=== PATIENT | male | born 1960 | race Caucasian/White ===

== ENCOUNTER 2017-12-04 10:26 | Observation (INO) | payer BC ==
[2017-12-04] MEDS ORDERED: Nitroglycerin TAB 0.4 MG* 0.4 MG TAB SL ONE (10:53)
[2017-12-04] MEDS ORDERED: NS 0.9% 1000 ML* 1,000 ML IV ONE (10:53)
[2017-12-04 11:32] LABS: ABS Basophils 0.1 10^3/ul (0-0.2); ABS Eosinophils 0 10^3/ul (0-0.6); ABS Lymphocytes 0.9 10^3/ul (1.0-4.8); ABS Monocytes 0.8 10^3/ul (0-0.8); ABS Neutrophils 9.1 10^3/ul (1.5-7.7); ABS Nucleated RBC 0 10^3/ul; Eosinophil % 0.2 % (0-6); Hematocrit 45 % (42-52); Hemoglobin 15.7 g/dl (14.0-18.0); Lymphocyte % 8.6 % (25-47); Mean Corpuscular HGB Conc 35 g/dl (31-36); Mean Corpuscular Hemoglobin 33 pg (27-31); Mean Corpuscular Volume 94 fL (80-94); Mean Platelet Volume 7.3 um3 (7.4-10.4); Nucleated Red Blood Cells % 0; Platelet Count 296 10^3/ul (150-450); Red Blood Count 4.77 10^6/ul (4.0-5.4); Red Cell Distribution Width 12 % (10.5-15); White Blood Count 10.9 10^3/ul (3.5-10.8)
--- NOTE | 2017-12-04 11:39 | RAD ---
Indication: Chest pain, shortness of breath. Comparison: June 16, 2015 Technique: Upright AP 1112 hours Report: Suboptimal inspiration. Clear lungs and pleural spaces. Negative for pneumothorax. The heart, pulmonary vasculature, and mediastinal contours are unremarkable. IMPRESSION: Negative for cardiomegaly or pulmonary edema. Low lung volumes.
[2017-12-04 11:41] LABS: INR 0.97 (0.77-1.02)
[2017-12-04 11:54] LABS: EGFR Non-African American 71.5 (>60)
[2017-12-04] MEDS ORDERED: Magnesium Sulfate 2 GM IV* 2 GM/50 ML BAG IVPB ONE (11:57)
[2017-12-04] MEDS ORDERED: Iohexol 300* (CONTRAST) 10 ML SDV IV ONE (12:23)
--- NOTE | 2017-12-04 13:01 | RAD ---
Indication: Lower and upper abdominal pain. Contrast: Administered 127.1 ml of OMNIPAQUE 300 mg/ml CT of the abdomen and pelvis was performed after oral and IV contrast administration. Coronal and sagittal reconstructed images were obtained. Lung bases demonstrate no pleural fluid, nodules or masses. Heart is of normal size without evidence of pericardial effusion. Liver is normal in size. No focal lesions or intrahepatic ductal dilatation is noted. The spleen is normal in size. The pancreas demonstrates no mass or pancreatic duct dilatation. Common duct is not dilated. The gallbladder demonstrates high density material in the dependent portion consistent with cholelithiasis. No pericholecystic fluid is identified. No wall thickening is identified. No adrenal masses are noted. The kidneys demonstrate symmetric nephrograms without hydronephrosis. No retroperitoneal lymphadenopathy is noted. No dilated loops of bowel are noted. The urinary bladder is unremarkable. The appendix is visualized and is normal. No hernias are noted. The pelvis demonstrates no retroperitoneal or pelvic lymphadenopathy. Small bowel demonstrates no abnormal dilatation. There is contrast in the colon. Prostate is normal in size. Urinary bladder is unremarkable. IMPRESSION: Hepatic steatosis. Cholelithiasis without biliary duct dilatation. Normal appendix. Diverticulosis without definite evidence of diverticulitis.
[2017-12-04] MEDS ORDERED: Ondansetron INJ* 2 MG/ML VIAL IV PRN (13:05)
[2017-12-04] MEDS ORDERED: Thiamine IV 100 MG, Folic Acid IV* 1 MG, Multiple Vitamin IV ADULT* 10 ML in D5NS 0.9% ... IV ONE (13:05)
[2017-12-04] MEDS ORDERED: Acetaminophen TAB* 325 MG PO PRN ×2 (13:05)
[2017-12-04] MEDS ORDERED: NS 0.9% 1000 ML* 1,000 ML IV SCH (13:15)
[2017-12-04] MEDS ORDERED: Potassium Chlor TAB* 20 MEQ TAB.ER PO ONE (13:19)
[2017-12-04 13:27] LABS: Urine Appearance Clear; Urine Blood Negative (Negative); Urine Color Yellow; Urine Ketones Negative (Negative); Urine Protein Negative (Negative); Urine Specific Gravity 1.009 (1.010-1.030); Urine Urobilinogen Negative (Negative)
[2017-12-04] MEDS ORDERED: LORazepam TAB(*) 1 MG PO SCH (14:00)
--- NOTE | 2017-12-04 14:54 | ED ---
Daniel Diaz Jennifer, scribed for Christian Lerma MD on 12/04/17 at 1053 . Complex/Multi-Sys Presentation - HPI Summary HPI Summary: The patient is a 57 year old male who complains of chest pressure, heart racing , shortness of breath, and anxiety that began this morning at 07:30. He denies that the chest pressure radiates to anywhere else in his body. Movement, standing, and walking aggravates the shortness of breath. The patient additionally complains of nausea, coughing, and abdominal pressure. He adds that he had an appointment with Dr. Angeles due to GI problems for the past week. The patient denies swelling of the ankles, feeling sweaty, and abdominal pain in the ED today. - History Of Current Complaint Chief Complaint: EDChestPainROMI Time Seen by Provider: 12/04/17 10:43 Hx Obtained From: Patient Onset/Duration: Sudden Onset, Lasting Hours - about 3 hours, Still Present Timing: Constant Severity Currently: Mild Severity Initially: Mild Location: Pain At: - Chest pressure Aggravating Factor(s): Movement, standing, walking increases shortness of breath Associated Signs And Symptoms: Positive: Other - chest pressure, heart racing, shortness of breath, anxiety, nausea, coughing, abdominal pressure. NEGATIVE: swelling of the ankles, feeling sweaty, abdominal pain - Allergies/Home Medications Allergies/Adverse Reactions: Allergies Allergy/AdvReac Type Severity Reaction Status Date / Time No Known Allergies Allergy Verified 08/12/17 08:59 Home Medications: Home Medications Chlorthalidone TAB* [Hygroton TAB*] 25 mg PO DAILY 12/04/17 [History Confirmed 12/04/17] Enalapril TAB* [Vasotec TAB*] 40 mg PO DAILY 12/04/17 [History Confirmed ] Escitalopram (NF) [Lexapro 10 mg (NF)] 10 mg PO DAILY 12/04/17 [History Confirmed 12/04/17] Hyoscyamine ER (NF) [Levbid (NF)] 0.375 mg PO BID 12/04/17 [History Confirmed ] Omeprazole CAP* [Prilosec CAP* 20 MG] 40 mg PO DAILY 12/04/17 [History Confirmed 12/04/17] amLODIPine TAB* [Norvasc 5 mg TAB*] 10 mg PO DAILY 12/04/17 [History Confirmed 12/04/17] PMH/Surg Hx/FS Hx/Imm Hx Endocrine/Hematology History: Denies: Hx Diabetes Cardiovascular History: Reports: Hx Hypertension Denies: Hx Pacemaker/ICD History: Denies: Hx Renal Disease Sensory History: Denies: Hx Hearing Aid Psychiatric History: Denies: Hx Panic Disorder - Surgical History Surgery Procedure, Year, and Place: Rt ANKLE - W/ SCREWS - THEY ARE REMOVED, RIGHT KNEE MENISCUS REPAIR Infectious Disease History: No Infectious Disease History: Denies: Traveled Outside the [place] in Last 30 Days - Family History Known Family History: Positive: Hypertension - Mother, Father - Social History Alcohol Use: None Substance Use Type: Reports: None Smoking Status (MU): Former Smoker Review of Systems Negative: Skin Diaphoresis Positive: Palpitations, Chest Pain - Pressure Positive: Shortness Of Breath, Cough Positive: Abdominal Pain - Abdominal pressure, Nausea Negative: Edema All Other Systems Reviewed And Are Negative: Yes Physical Exam - Summary Physical Exam Summary: General: well-appearing, no pain distress Skin: warm, color reflects adequate perfusion, dry Head: normal Eyes: EOMI, RANDALL ENT: normal Neck: supple, nontender Respiratory: CTA, breath sounds present Cardiovascular: RRR Abdomen: soft, nontender Bowel: present Musculoskeletal: normal, strength/ROM intact Neurological: normal, sensory/motor intact, A&O x3 Psychological: affect/mood appropriate Triage Information Reviewed: Yes Vital Signs On Initial Exam: Initial Vitals Temp Pulse Resp BP Pulse Ox 98.1 F 83 19 157/87 97 12/04/17 10:32 12/04/17 10:32 12/04/17 10:32 12/04/17 10:32 12/04/17 10:32 Vital Signs Reviewed: Yes Diagnostics - Vital Signs Vital Signs Temp Pulse Resp BP Pulse Ox 12/04/17 10:34 84 94 12/04/17 10:32 98.1 F 83 19 157/87 97 - Laboratory Lab Results: Lab Results 12/04/17 12/04/17 12/04/17 Range/Units 11:21 11:21 11:21 WBC 10.9 H (3.5-10.8) 10^3/ul RBC 4.77 (4.0-5.4) 10^6/ul Hgb 15.7 (14.0-18.0) g/dl Hct 45 (42-52) % MCV 94 (80-94) fL MCH 33 H (27-31) pg MCHC 35 (31-36) g/dl RDW 12 (10.5-15) % Plt Count 296 (150-450) 10^3/ul MPV 7.3 L (7.4-10.4) um3 Neut % (Auto) 83.6 H (38-83) % Lymph % (Auto) 8.6 L (25-47) % [place] % (Auto) 7.1 H (0-7) % Eos % (Auto) 0.2 (0-6) % Baso % (Auto) 0.5 (0-2) % Absolute Neuts (auto) 9.1 H (1.5-7.7) 10^3/ul Absolute Lymphs (auto) 0.9 L (1.0-4.8) 10^3/ul Absolute Monos (auto) 0.8 (0-0.8) 10^3/ul Absolute Eos (auto) 0 (0-0.6) 10^3/ul Absolute Basos (auto) 0.1 (0-0.2) 10^3/ul Absolute Nucleated RBC 0 10^3/ul Nucleated RBC % 0 INR (Anticoag Therapy) 0.97 (0.77-1.02) APTT 35.6 (26.0-36.3) seconds D-Dimer, Quantitative < 200 (Less Than 230) ng/mL Sodium (133-145) mmol/L Potassium (3.5-5.0) mmol/L Chloride (101-111) mmol/L Carbon Dioxide (22-32) mmol/L Anion Gap (2-11) mmol/L BUN (6-24) mg/dL Creatinine (0.67-1.17) mg/dL Est GFR ( Amer) (>60) Est GFR (Non-Af Amer) (>60) BUN/Creatinine Ratio (8-20) Glucose (70-100) mg/dL Lactic Acid (0.5-2.0) mmol/L Calcium (8.6-10.3) mg/dL Magnesium (1.9-2.7) mg/dL Total Bilirubin (0.2-1.0) mg/dL AST (13-39) U/L ALT (7-52) U/L Alkaline Phosphatase (34-104) U/L Total Creatine Kinase (10-223) U/L CK-MB (CK-2) (0.6-6.3) ng/mL Troponin I (<0.04) ng/mL C-Reactive Protein (< 5.00) mg/L B-Natriuretic Peptide 33 ( - 100) pg/mL Total Protein (6.4-8.9) g/dL Albumin (3.2-5.2) g/dL Globulin (2-4) g/dL Albumin/Globulin Ratio (1-3) Lipase (11.0-82.0) U/L TSH (0.34-5.60) mcIU/mL Cortisol mcg/dL Urine Color Urine Appearance Urine pH (5-9) Ur Specific [place] (1.010-1.030) Urine Protein (Negative) Urine Ketones (Negative) Urine Blood (Negative) Urine Nitrate (Negative) Urine Bilirubin (Negative) Urine Urobilinogen (Negative) Ur Leukocyte Esterase (Negative) Urine Glucose (Negative) 12/04/17 12/04/17 12/04/17 Range/Units 11:21 11:21 12:25 WBC (3.5-10.8) 10^3/ul RBC (4.0-5.4) 10^6/ul Hgb (14.0-18.0) g/dl Hct (42-52) % MCV (80-94) fL MCH (27-31) pg MCHC (31-36) g/dl RDW (10.5-15) % Plt Count (150-450) 10^3/ul MPV (7.4-10.4) um3 Neut % (Auto) (38-83) % Lymph % (Auto) (25-47) % [place] % (Auto) (0-7) % Eos % (Auto) (0-6) % Baso % (Auto) (0-2) % Absolute Neuts (auto) (1.5-7.7) 10^3/ul Absolute Lymphs (auto) (1.0-4.8) 10^3/ul Absolute Monos (auto) (0-0.8) 10^3/ul Absolute Eos (auto) (0-0.6) 10^3/ul Absolute Basos (auto) (0-0.2) 10^3/ul Absolute Nucleated RBC 10^3/ul Nucleated RBC % INR (Anticoag Therapy) (0.77-1.02) APTT (26.0-36.3) seconds D-Dimer, Quantitative (Less Than 230) ng/mL Sodium 129 L (133-145) mmol/L Potassium 3.2 L (3.5-5.0) mmol/L Chloride 94 L (101-111) mmol/L Carbon Dioxide 26 (22-32) mmol/L Anion Gap 9 (2-11) mmol/L BUN 22 (6-24) mg/dL Creatinine 1.07 (0.67-1.17) mg/dL Est GFR ( Amer) 91.9 (>60) Est GFR (Non-Af Amer) 71.5 (>60) BUN/Creatinine Ratio 20.6 H (8-20) Glucose 106 H (70-100) mg/dL Lactic Acid 1.2 (0.5-2.0) mmol/L Calcium 9.0 (8.6-10.3) mg/dL Magnesium 1.7 L (1.9-2.7) mg/dL Total Bilirubin 0.90 (0.2-1.0) mg/dL AST 159 H (13-39) U/L ALT 96 H (7-52) U/L Alkaline Phosphatase 81 (34-104) U/L Total Creatine Kinase 70 (10-223) U/L CK-MB (CK-2) 2.3 (0.6-6.3) ng/mL Troponin I 0.00 (<0.04) ng/mL C-Reactive Protein 9.80 H (< 5.00) mg/L B-Natriuretic Peptide ( - 100) pg/mL Total Protein 7.0 (6.4-8.9) g/dL Albumin 3.8 (3.2-5.2) g/dL Globulin 3.2 (2-4) g/dL Albumin/Globulin Ratio 1.2 (1-3) Lipase 41 (11.0-82.0) U/L TSH 1.10 (0.34-5.60) mcIU/mL Cortisol 17.04 mcg/dL Urine Color Yellow Urine Appearance Clear Urine pH 6.0 (5-9) Ur Specific [place] 1.009 L (1.010-1.030) Urine Protein Negative (Negative) Urine Ketones Negative (Negative) Urine Blood Negative (Negative) Urine Nitrate Negative (Negative) Urine Bilirubin Negative (Negative) Urine Urobilinogen Negative (Negative) Ur Leukocyte Esterase Negative (Negative) Urine Glucose Negative (Negative) Result Diagrams: 12/04/17 11:21 12/04/17 11:21 Lab Statement: Any lab studies that have been ordered have been reviewed, and results considered in the medical decision making process. - Radiology CXR Xray Interpretation: No Acute Changes - Negative for cardiomegaly or pulmonary edema. Low lung volumes. Dr. Lerma has reviewed this report. Radiology Interpretation Completed By: Radiologist - CT CT Abd/Pel CT Interpretation: No Acute Changes - Hepatic steatosis. Cholelithiasis without biliary duct dilatation. Normal appendix. Diverticulosis without definite evidence of diverticulitis. Dr. Lerma has reviewed this report. CT Interpretation Completed By: Radiologist - EKG 10:34 Cardiac Rate: NL EKG Rhythm: Sinus Rhythm - [address] Segment: Normal Ectopy: PVCs Complex Multi-Symp Course/Dx Course Of Treatment: Medications reviewed. BP noted and advised to follow up with PCP. ADMIT HOSPITALIST STABLE. - Diagnoses Provider Diagnoses: HTN (hypertension), Chest pain, Abdominal pain - Physician Notifications Discussed Care Of Patient With: Rose Simpson Time Discussed With Above Provider: 12:15 Instructed by Provider To: Admit As Inpatient Discharge - Sign-Out/Discharge Documenting (check all that apply): Discharge - ADMIT HOSPITALIST STABLE - Discharge Plan Condition: Stable Disposition: ADMITTED TO [facility] - Billing Disposition and Condition Condition: STABLE [place] [place] The documentation as recorded by the Daniel peace Jennifer accurately reflects the service I personally performed and the decisions made by , Christian Lerma MD.
[2017-12-04] MEDS: Hyoscyamine TAB* 0.125 MG PO SCH (17:02)
--- NOTE | 2017-12-04 19:47 | HP ---
CC: Dr. Carcamo * HISTORY AND PHYSICAL: DATE OF ADMISSION: 12/04/17 PRIMARY CARE PROVIDER: Dr. Carcamo. ATTENDING PHYSICIAN WHILE IN THE HOSPITAL: Dr. Rose Simpson * (report dictated by Cruz Guzman NP). CHIEF COMPLAINT: 1. Lightheadedness. 2. Dizziness. 3. Shortness of breath. 4. Chest pressure. HISTORY OF PRESENT ILLNESS: Mr. Mancuso is a 57-year-old male patient, he carries a history of hypertension, borderline hyperlipidemia, he also has a history of DENNIS, history of IBS, depression. He comes in to our ER today stating that last , he noticed he was having lower abdominal cramping, he was feeling constipated. He has really not had a good appetite last couple of days. Of note, he is going through a divorce actively. In addition to this , also has a high stress job. He says that he took a laxative on Friday, which did help him, but he has been having this intermittent lower abdominal cramping that he has had for some time and he has had a recent colonoscopy to work this up. He also told today the reason he came into the ED was because he had an episode where he was going to the shower, he felt very lightheaded, felt like he was going to faint, felt dizzy, started having some pressure in the left side of his chest. He felt palpitations, he felt short of breath, he was getting sweaty, he was concerned and came in to the emergency department. He said the pain did go away when he received a nitro here in the emergency department. He says an aspirin was given by EMS on his way into the hospital. He says that the discomfort in his chest is now gone, but there was concern due to his history and we were asked to evaluate for admission. He denied having any fevers. He says he did not pass out. He denies any recent trips or travel. He says he has been drinking heavily about a half a bottle to three- fourths of a bottle a day of hard liquor for quite some time. He says he did not tell me specifically how long he had been drinking this heavy for. He denied having any vomiting. He says he has been having some dry heaves. He says the abdominal pain again has been intermittent. He has had decreased appetite and he has been following with GI for working this up. PAST MEDICAL HISTORY: Significant for: 1. Hypertension. 2. DENNIS. 3. Hyperlipidemia. 4. IBS. 5. Depression. PAST SURGICAL HISTORY: He has had a right total knee replacement. MEDICATIONS: His home medications include: 1. Norvasc 10 mg p.o. daily. 2. Lexapro 10 mg daily. 3. Vasotec 40 mg daily. 4. Chlorthalidone 25 mg p.o. daily. 5. Prilosec 40 mg daily. 6. Hyoscyamine 0.375 mg p.o. b.i.d. ALLERGIES TO MEDICATIONS: No known drug allergies. FAMILY HISTORY: His mother had a history of NE. Father had bladder cancer. 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 He is a former smoker. He smoked for about 10 to 15 years; he quit in 1999. He does drink on a daily basis. Denies any other recreational drug abuse. He does not have a surrogate decision maker at this point. REVIEW OF SYSTEMS: There is no documented fever. He denied having any significant weight change. There was no double vision. He denies having any ear discharge. He denies having any rhinorrhea. There is no sore throat. No thyroid enlargement. There was chest pressure from my HPI. There is abdominal pain from my HPI. Denied any shortness of breath now. He did admit to having shortness of breath with the episode, but no orthopnea, no nocturnal dyspnea. Does admit to dry heaves with nausea, but no vomiting. No dysuria, no frequency. No seizure, there was no loss of consciousness. No pruritus, no skin ulceration. Review of 14 systems completed, all others negative. PHYSICAL EXAMINATION GENERAL: At this time, Mr. Mancuso is a 57-year-old male patient. He is sitting in the ED stretcher. He does not appear to be in any acute distress. VITAL SIGNS: Blood pressure 157/92, pulse 90, respirations were 20, his O2 sat was 96%, temperature 98.1. HEENT: Head: Atraumatic, normocephalic. Eyes: EOMs are intact. Sclerae anicteric and not pale. Throat: Oral mucosa appears to be moist. No oropharyngeal erythema. NECK: Supple. LUNGS: Clear to auscultation bilaterally. No wheezes, rales, or rhonchi. HEART: Sounds S1, S2. Regular rate and rhythm. No murmurs, rubs, or gallops. ABDOMEN: Soft. It was flat, nontender. Bowel sounds present. EXTREMITIES: Pulses were 2+ throughout. He had no peripheral edema. He is moving all 4 extremities with 5/5 strength. NEUROLOGIC: The patient is awake, he is alert, he is oriented x3. His tongue is midline. His mechanical laboratory technician were equal. No gross focal deficits. SKIN: Intact. DIAGNOSTIC STUDIES/LAB DATA: WBC of 10.9, RBC of 4.77, hemoglobin 15.7, hematocrit of 45, platelet count of 296. INR of 0.97, PTT of 35.6, his D-dimer was less than 200. His sodium was 129, potassium was 3.2, chloride 94, his bicarb was 26, BUN 22, creatinine 1.07, glucose 106, lactate 1.2, calcium 9, mag was 1.7. Total bili 0.7, AST 159, ALT 96, alk phos 81. CK 70, CK-MB 2.3. Troponin 0. CRP at 9.8. BNP at 33. Albumin 3.8. Lipase normal. TSH was normal. He had an abdominal pelvis CT scan today. Impression: Hepatitic steatosis, cholelithiasis without biliary duct dilatation, normal appendix, diverticulosis without evidence of diverticulitis. There was a chest x-ray obtained today, which showed negative for cardiomegaly, pulmonary edema, or lung volume. There was an EKG obtained today, which shows normal sinus rhythm. His P waves were inverted. He did have a PVC, but he had no ST elevations or T-wave inversions. He did have PVC and PACs noted. Reviewing the previous EKG, the P- wave inversions are new. He had no T-wave inversions. He had again no gross changes at this point with exception of the P waves. Old medical records were reviewed. ASSESSMENT AND PLAN: Mr. Mancuso is a 57-year-old male patient coming into the emergency department today with multiple complaints of abdominal pain, in addition to his chest pain, feeling like he was going to faint, feeling palpitations. We were asked to evaluate for admission. He will be admitted under observation status for: 1. Chest discomfort and presyncope. At this point, he does have risk factor for coronary artery disease. I think we should cycle his troponins, get lipid panel, A1c in the morning, start him on baby aspirin, continue his meds as prescribed. He is chest pain free now. We will get a stress test. I ordered a chemical stress test as the patient has been having issues with his right knee replacement. He says that it has been clicking and at times it is painful , and he was told that he should not be running on this, so I had ordered a chemical stress test for the patient due to this reason. We will repeat his EKG , get the troponins, place him on telemetry, and follow. 2. Presyncope. Again, I will check orthostatic blood pressures as he not been eating well. In addition to this, we will get the stress test. Place the patient on telemetry, and we will continue to follow. 3. Abdominal pain, etiology is unclear. His working diagnosis is irritable bowel syndrome, he is following with [facility]. He had a colonoscopy in July, which appeared to be normal. He had a CT scan today, which showed cholelithiasis, but he is not complaining of tenderness in the right upper quadrant and there are no signs of cholecystitis on CT imaging and he is nontender, so at this point, I think what we will do is reevaluate tomorrow. He does not appear to be obstructed on initial lab. His bili is okay. His alk phos is okay. We will repeat his LFTs in the morning. We will continue to follow this. Certainly, it could be related to the alcohol use that could be causing this. We will continue the hyoscyamine and we will continue to monitor. He is not having any pain now and he is soft, flat, and nontender. 4. Hyponatremia. This is probably secondary to the chlorthalidone and decreased intake. We will go ahead and give him normal saline at 100 and repeat this in the morning. I am sending off cortisol, TSH, urine osmo and serum osmo. 5. Hypokalemia. This has been replaced here in the ED. 6. Hypomagnesemia. We are going to replace this as well with IV mag. 7. Ethanol abuse. I did put him on the [facility] protocol. His LFTs are mildly bumped, is probably secondary to the hepatic steatosis. We will repeat the LFTs in the morning and monitor. 8. Hypertension. Continue meds as prescribed. 9. Obstructive sleep apnea. Continue with CPAP. 10. Hyperlipidemia. Checking lipid panel to follow. 11. Question of irritable bowel syndrome. Continue with his medications. 12. Depression. Continue supportive care. 13. DVT prophylaxis. I have ordered SCDs. 14. Code status: Full code. 15. Fluids, electrolytes, and nutrition. He can have a heart-healthy diet and is n.p.o. after midnight. TIME SPENT: On the admission was approximately 60 minutes, greater than half the time spent [id number] with the patient obtaining my history and physical, other half of the time spent going over the plan of care with the patient and implementing the plan of care. I did discuss the plan of care with my attending, Dr. Simpson; she is in agreement. CRUZ GUZMAN, MIKE [id number]/CPS #: [id number] CIARA
[2017-12-05 05:12] LABS: ABS Basophils 0 10^3/ul (0-0.2); ABS Eosinophils 0.2 10^3/ul (0-0.6); ABS Lymphocytes 1.7 10^3/ul (1.0-4.8); ABS Monocytes 0.7 10^3/ul (0-0.8); ABS Neutrophils 5.3 10^3/ul (1.5-7.7); ABS Nucleated RBC 0 10^3/ul; Eosinophil % 2.2 % (0-6); Hematocrit 41 % (42-52); Hemoglobin 14.2 g/dl (14.0-18.0); Mean Corpuscular HGB Conc 35 g/dl (31-36); Mean Corpuscular Hemoglobin 33 pg (27-31); Mean Corpuscular Volume 94 fL (80-94); Mean Platelet Volume 7.6 um3 (7.4-10.4); Nucleated Red Blood Cells % 0.1; Platelet Count 260 10^3/ul (150-450); Red Blood Count 4.31 10^6/ul (4.0-5.4); Red Cell Distribution Width 13 % (10.5-15); White Blood Count 7.9 10^3/ul (3.5-10.8)
[2017-12-05 05:16] LABS: INR 0.95 (0.77-1.02)
[2017-12-05 05:22] LABS: EGFR Non-African American 101.5 (>60)
[2017-12-05] MEDS: Hyoscyamine TAB* 0.125 MG PO SCH ×2 (08:44→13:05)
[2017-12-05] MEDS ORDERED: Omeprazole CAP* 20 MG PO SCH (09:00)
[2017-12-05] MEDS ORDERED: Enalapril TAB* 20 MG PO SCH (09:00)
[2017-12-05] MEDS ORDERED: amLODIPine TAB* 5 MG PO SCH (09:00)
[2017-12-05] MEDS ORDERED: Multivitamins/Minerals TAB PO SCH (09:00)
[2017-12-05] MEDS ORDERED: Citalopram TAB* 20 MG PO SCH (09:00)
[2017-12-05] MEDS ORDERED: Thiamine TAB* 100 MG TAB PO SCH (09:00)
[2017-12-05] MEDS ORDERED: Aspirin Low Dose CHEW TAB* 81 MG PO SCH (09:00)
[2017-12-05] MEDS ORDERED: Folic Acid TAB* 1 MG PO SCH (09:00)
--- NOTE | 2017-12-05 13:22 | RAD ---
Edited for charges. INDICATION: Chest pain, shortness of breath, hypertension, obesity. COMPARISON: No relevant prior exams available on the [facility] PACS for comparison. TECHNIQUE: 10.700 mCi of Tc-99m Myoview were administered IV. SPECT images of the heart were obtained. Later on the same day. Under the direction of Dr. Todd, the patient was given an IV injection of a pharmacologic stress agent. Subsequently, the patient was given an IV injection of 25.200 mCi Tc-99m Myoview. SPECT images of the heart were obtained and a gated wall motion study was performed. FINDINGS: Gated wall motion images were obtained at stress and demonstrate wall motion to be within normal limits. The calculated left ventricular ejection fraction is 70 % at stress. Estimated LEFT ventricular end diastolic volume is 85 mL. TID 1.03. Based on review of the attenuation corrected and non corrected images the distribution of radiopharmaceutical within the myocardium on the stress and rest images is within normal limits. No fixed or reversible regions of hypoperfusion evident. IMPRESSION: 1. No evidence for stress induced myocardial ischemia or presence of an infarct. 2. Normal left ventricular wall motion and ejection fraction. ASSESSMENT: Low risk based on nuclear portion Based on imaging criteria from ACC/AHA 2002 Guideline Update for the Management of Patients With Chronic Stable Angina Table 23. Noninvasive Risk Stratification. MTDD
[2017-12-05 14:05] VITALS: BP 145/85
--- NOTE | 2017-12-06 03:07 | DS ---
DISCHARGE SUMMARY: DATE OF ADMISSION: 12/04/17 DATE OF DISCHARGE: 12/05/17 ADMITTING PROVIDER: Cruz Guzman NP PRIMARY CARE PHYSICIAN: Dr. Carcamo. ATTENDING PHYSICIAN: Kushal Gaona MD CHIEF COMPLAINT: Lightheadedness, dizziness, shortness of breath, chest pressure, anxiety. PRINCIPAL DIAGNOSIS: Anxiety; acute coronary syndrome, ruled out. HISTORY OF PRESENT ILLNESS: Syed Mancuso is a 57-year-old male with past medical history of hypertension, hyperlipidemia, obstructive sleep apnea, irritable bowel syndrome, anxiety, depression, been going through lot of stress in his work and home life recently including divorce and having to sell his house, alcohol abuse (progressive and recently accelerating; currently attested to 1/2 to 3/4 bottle of hard liqour daily). He presents to the ER a week prior to admission with low abdominal cramping, was constipated, took the laxatives 3 days prior to admission with some improvement. On the day of admission, he had episode in the shower where he felt very lightheaded, felt like he was going to faint, was very dizzy and had some pressure on the left side of his chest. He felt palpitations. He was getting short of breath and sweaty. He presented to the emergency room and received nitroglycerin with some relief. He reports the chest pressure was 1 or 2/10 at its worst. He had aspirin with EMS. Of note, on further history, his last drink had been 3 days prior to admission on Friday , 12/01/17. He was admitted for ACS rule out. He had negative troponin x3 and low risk negative nuclear stress test without any evidence of ischemia or infarction and normal left ventricular wall motion and ejection fraction. He attests that he thinks he was having a panic attack. Also likely that he was having to be of alcohol withdrawal. He was placed on WAM precautions throughout the admission and did not require any Ativan. He reports that he had been sober for many years stopping 15 years ago when he had previously abused alcohol. He was visited by social work and case management about alcohol abuse programs. He attested he has a good support system, which he plans to follow up with and did not want any specific referral. He is being discharged on thiamine, folate, folic acid, multivitamin. He was also noted to be hyponatremic to 129 on admission, improved to 131. His chlorthalidone was held during admission. It is being recommended to be stopped. He was started on metoprolol succinate 25 mg p.o. daily in its place. He should record his blood pressures daily. He was also started on aspirin 81 mg daily. DISCHARGE MEDICATIONS: Include: 1. Amlodipine 10 mg p.o. daily. 2. Enalapril 40 mg p.o. daily. 3. Lexapro 10 mg p.o. daily. 4. Hyoscyamine 0.375 mg p.o. b.i.d. 5. Omeprazole 40 mg p.o. daily. 6. Aspirin 81 mg p.o. daily (new). 7. Folic acid 1 mg p.o. daily (new). 8. Metoprolol succinate 25 mg p.o. daily (new). 9. Multivitamin 1 tab p.o. daily (new). 10. Thiamine 100 mg p.o. daily (new). DISCHARGE DIET: Heart healthy. ACTIVITY LEVEL: No restrictions. FOLLOWUP: He is to follow up with Dr. Carcamo within 5 days of discharge. The patient also missed appointment previous scheduled with Dr. Lenz for his IBS and should be rescheduled. He should take a log book with his blood pressure readings to Dr. Carcamo. He needs to drastically moderate if not eliminate alcohol and plans to pursue the same resources he has used in the past to obtain this goal. TIME SPENT ON DISCHARGE: 35 minutes. [id number]/CPS #: [id number] MTDD
== END 2017-12-05 16:10 | disposition home or self-care (01) ==
LOC: ED 10:26 → MEDTELE 13:03
PROVIDERS: ADMIT Internal Medicine; ATTEND Internal Medicine
DX: R42 Dizziness and giddiness (principal); F41.9 Anxiety disorder, unspecified; Z79.899 Other long term (current) drug therapy; G47.33 Obstructive sleep apnea (adult) (pediatric); E78.5 Hyperlipidemia, unspecified; K58.9 Irritable bowel syndrome, unspecified; F32.9 Major depressive disorder, single episode, unspecified; Z87.891 Personal history of nicotine dependence; R10.9 Unspecified abdominal pain; R94.31 Abnormal electrocardiogram [ECG] [EKG]; R06.02 Shortness of breath
CPT/HCPCS: 36415; 71045; 74177; 78452; 80048; 80053; 80061; 80076; 81003; 82533; 82550; 82553; 83036; 83605; 83690; 83735; 83880; 83930; 83935; 84300; 84443; 84484; 85025; 85379; 85610; 85730; 86140; 93005; 93017; 94660; 96365; 96366; 96367; 99284; A9270-GY; A9502; G0378; J3411; J3475; Q9967

== ENCOUNTER 2018-01-23 13:16 | Emergency (ER) | payer BC ==
[2018-01-23] MEDS ORDERED: NS 0.9% 1000 ML* 1,000 ML IV ONE (13:50)
[2018-01-23] MEDS ORDERED: Thiamine TAB* 100 MG TAB PO ONE (13:51)
[2018-01-23] MEDS ORDERED: Thiamine IV* 100 MG/ML 2 ML VIAL IV ONE (13:51)
[2018-01-23] MEDS ORDERED: Thiamine IV* 100 MG, Folic Acid IV* 1 MG, Multiple Vitamin IV ADULT* 10 ML in NS 0.9% 1... IV ONE (13:51)
[2018-01-23 14:21] LABS: ABS Basophils 0 10^3/ul (0-0.2); ABS Eosinophils 0.2 10^3/ul (0-0.6); ABS Lymphocytes 1.5 10^3/ul (1.0-4.8); ABS Monocytes 0.5 10^3/ul (0-0.8); ABS Neutrophils 5.1 10^3/ul (1.5-7.7); ABS Nucleated RBC 0 10^3/ul; Eosinophil % 3.3 % (0-6); Hematocrit 46 % (42-52); Hemoglobin 16.1 g/dl (14.0-18.0); Lymphocyte % 20.1 % (25-47); Mean Corpuscular HGB Conc 35 g/dl (31-36); Mean Corpuscular Hemoglobin 32 pg (27-31); Mean Corpuscular Volume 92 fL (80-94); Mean Platelet Volume 7.3 um3 (7.4-10.4); Nucleated Red Blood Cells % 0.1; Platelet Count 306 10^3/ul (150-450); Red Blood Count 4.96 10^6/ul (4.0-5.4); Red Cell Distribution Width 12 % (10.5-15); White Blood Count 7.4 10^3/ul (3.5-10.8)
[2018-01-23 14:36] LABS: EGFR Non-African American 95.8 (>60)
[2018-01-23] MEDS ORDERED: Thiamine IV* 100 MG/ML 2 ML VIAL ONE (15:49)
--- NOTE | 2018-01-23 18:52 | ED ---
Norman Diaz Angela, scribed for Norman Stark MD on 01/23/18 at 1352 . Substance Abuse/Use - HPI Summary HPI Summary: This pt is a 57 y/o male, accompanied by friend, presenting to [facility] via EMS for alcohol intoxication. Per friend, somebody saw the pt had passed out on his mower and called EMS and the police. Pt does not remember any of this and only remembers mowing his lawn at his house. He denies falling from mower. After EMS and the police arrived he states he asked them if he could just go back home. He states drinking "not much" and likes to drink "anything." Pt denies diaphoresis, fever, chills, chest pain, SOB, abd pain. Per [place] police officer, a third green party called in as they saw the pt passed out with vomit on his shirt on his driveway. On arrival per [place] police officer, pt was conscious but somewhat uncooperative. job placement officer believes the pt has hx of alcohol abuse. PMHx includes HTN. Pt is currently on amlodipine and enalapril. - History Of Current Complaint Stated Complaint: ETOH Time Seen by Provider: 01/23/18 13:20 Hx Obtained From: Patient, Other: - Friend, police Ingestion History: Type/Name Of Drug - Alcohol, Amount Ingested - unknown Overdose Characteristics: Oral Timing Of Abuse: Binge Use Severity Currently: Moderate Aggravating Factor(s): Nothing Alleviating Factor(s): Nothing Associated Signs And Symptoms: Negative - Allergies/Home Medications Allergies/Adverse Reactions: Allergies Allergy/AdvReac Type Severity Reaction Status Date / Time No Known Allergies Allergy Verified 08/12/17 08:59 Home Medications: Home Medications Aspirin EC TAB* [Ecotrin EC Low Dose 81 MG*] 81 mg PO DAILY 01/23/18 [History Confirmed 01/23/18] Metoprolol Succinate XL TAB* [Toprol XL TAB*] 25 mg PO DAILY 01/23/18 [History Confirmed 01/23/18] PMH/Surg Hx/FS Hx/Imm Hx Endocrine/Hematology History: Denies: Hx Diabetes Cardiovascular History: Reports: Hx Angina, Hx Hypertension Denies: Hx Coronary Artery Disease, Hx Myocardial Infarction, Hx Pacemaker/ ICD Respiratory History: Reports: Hx Sleep Apnea Denies: Hx Asthma, Hx Chronic Obstructive Pulmonary Disease (COPD) GI History: Reports: Hx Irritable Bowel History: Denies: Hx Renal Disease Musculoskeletal History: Reports: Hx Arthritis Sensory History: Reports: Hx Contacts or Glasses Denies: Hx Deafness, Hx Hearing Aid Opthamlomology History: Reports: Hx Contacts or Glasses Psychiatric History: Reports: Hx Anxiety Denies: Hx Panic Disorder - Surgical History Surgery Procedure, Year, and Place: Rt ANKLE - W/ SCREWS - THEY ARE REMOVED, RIGHT KNEE MENISCUS REPAIR, right knee replacement - Family History Known Family History: Positive: Hypertension - Mother, Father - Social History Alcohol Use: Daily Alcohol Amount: Pt declining to share Substance Use Type: Reports: None Smoking Status (MU): Former Smoker Review of Systems Negative: Fever, Chills, Skin Diaphoresis Negative: Erythema Negative: Sore Throat Negative: Chest Pain Negative: Shortness Of Breath, Cough Negative: Abdominal Pain, Vomiting, Nausea Negative: dysuria, hematuria Negative: Myalgia, Edema Negative: Rash Neurological: Other - NEG: dizziness All Other Systems Reviewed And Are Negative: Yes Physical Exam - Summary Physical Exam Summary: Constitutional: Well-developed, Well-nourished, Alert. (-) Distressed Skin: Warm, Dry. Mildly flushed. HENT: Normocephalic; Atraumatic Eyes: Conjunctiva normal Neck: Musculoskeletal ROM normal neck. (-) JVD, (-) Stridor, (-) Tracheal deviation Cardio: Rhythm regular, rate normal, Heart sounds normal; Intact distal pulses; The pedal pulses are 2+ and symmetric. Radial pulses are 2+ and symmetric. (-) Murmur Pulmonary/Chest wall: Effort normal. (-) Respiratory distress, (-) Wheezes, (-) Rales Abd: Soft, (-) Tenderness, (-) Distension, (-) Guarding, (-) Rebound Musculoskeletal: (-) Edema Lymph: (-) Cervical adenopathy Neuro: Alert, Oriented x3. Pt has mildly ataxia likely secondary to alcohol. Psych: Mood and affect Normal Triage Information Reviewed: Yes Vital Signs On Initial Exam: Initial Vitals Temp Pulse Resp BP Pulse Ox 36.9 C 108 18 158/95 94 01/23/18 13:30 01/23/18 13:30 01/23/18 13:30 01/23/18 13:30 01/23/18 13:30 Vital Signs Reviewed: Yes Diagnostics - Vital Signs Vital Signs Temp Pulse Resp BP Pulse Ox 01/23/18 17:31 37.4 C 103 18 163/117 94 01/23/18 13:30 36.9 C 108 18 158/95 94 - Laboratory Lab Results: Lab Results 01/23/18 01/23/18 01/23/18 Range/Units 14:06 14:06 14:06 WBC 7.4 (3.5-10.8) 10^3/ul RBC 4.96 (4.0-5.4) 10^6/ul Hgb 16.1 (14.0-18.0) g/dl Hct 46 (42-52) % MCV 92 (80-94) fL MCH 32 H (27-31) pg MCHC 35 (31-36) g/dl RDW 12 (10.5-15) % Plt Count 306 (150-450) 10^3/ul MPV 7.3 L (7.4-10.4) um3 Neut % (Auto) 69.4 (38-83) % Lymph % (Auto) 20.1 L (25-47) % [place] % (Auto) 6.6 (0-7) % Eos % (Auto) 3.3 (0-6) % Baso % (Auto) 0.6 (0-2) % Absolute Neuts (auto) 5.1 (1.5-7.7) 10^3/ul Absolute Lymphs (auto) 1.5 (1.0-4.8) 10^3/ul Absolute Monos (auto) 0.5 (0-0.8) 10^3/ul Absolute Eos (auto) 0.2 (0-0.6) 10^3/ul Absolute Basos (auto) 0 (0-0.2) 10^3/ul Absolute Nucleated RBC 0 10^3/ul Nucleated RBC % 0.1 Carbon Monoxide Screen (<4.0) % Sodium 139 (139-145) mmol/L Potassium 3.5 (3.5-5.0) mmol/L Chloride 99 L (101-111) mmol/L Carbon Dioxide 28 (22-32) mmol/L Anion Gap 12 H (2-11) mmol/L BUN 19 (6-24) mg/dL Creatinine 0.83 (0.67-1.17) mg/dL Est GFR ( Amer) 123.3 (>60) Est GFR (Non-Af Amer) 95.8 (>60) BUN/Creatinine Ratio 22.9 H (8-20) Glucose 117 H (70-100) mg/dL Lactic Acid 3.7 H* (0.5-2.0) mmol/L Calcium 9.4 (8.6-10.3) mg/dL Magnesium 1.7 L (1.9-2.7) mg/dL Total Bilirubin 0.30 (0.2-1.0) mg/dL AST 59 H (13-39) U/L ALT 57 H (7-52) U/L Alkaline Phosphatase 98 (34-104) U/L Troponin I 0.01 (<0.04) ng/mL Total Protein 7.5 (6.4-8.9) g/dL Albumin 4.1 (3.2-5.2) g/dL Globulin 3.4 (2-4) g/dL Albumin/Globulin Ratio 1.2 (1-3) TSH 0.76 (0.34-5.60) mcIU/mL Serum Alcohol 382 H (<10) mg/dL 01/23/18 Range/Units 14:06 WBC (3.5-10.8) 10^3/ul RBC (4.0-5.4) 10^6/ul Hgb (14.0-18.0) g/dl Hct (42-52) % MCV (80-94) fL MCH (27-31) pg MCHC (31-36) g/dl RDW (10.5-15) % Plt Count (150-450) 10^3/ul MPV (7.4-10.4) um3 Neut % (Auto) (38-83) % Lymph % (Auto) (25-47) % [place] % (Auto) (0-7) % Eos % (Auto) (0-6) % Baso % (Auto) (0-2) % Absolute Neuts (auto) (1.5-7.7) 10^3/ul Absolute Lymphs (auto) (1.0-4.8) 10^3/ul Absolute Monos (auto) (0-0.8) 10^3/ul Absolute Eos (auto) (0-0.6) 10^3/ul Absolute Basos (auto) (0-0.2) 10^3/ul Absolute Nucleated RBC 10^3/ul Nucleated RBC % Carbon Monoxide Screen < 4 (<4.0) % Sodium (139-145) mmol/L Potassium (3.5-5.0) mmol/L Chloride (101-111) mmol/L Carbon Dioxide (22-32) mmol/L Anion Gap (2-11) mmol/L BUN (6-24) mg/dL Creatinine (0.67-1.17) mg/dL Est GFR ( Amer) (>60) Est GFR (Non-Af Amer) (>60) BUN/Creatinine Ratio (8-20) Glucose (70-100) mg/dL Lactic Acid (0.5-2.0) mmol/L Calcium (8.6-10.3) mg/dL Magnesium (1.9-2.7) mg/dL Total Bilirubin (0.2-1.0) mg/dL AST (13-39) U/L ALT (7-52) U/L Alkaline Phosphatase (34-104) U/L Troponin I (<0.04) ng/mL Total Protein (6.4-8.9) g/dL Albumin (3.2-5.2) g/dL Globulin (2-4) g/dL Albumin/Globulin Ratio (1-3) TSH (0.34-5.60) mcIU/mL Serum Alcohol (<10) mg/dL Result Diagrams: 01/23/18 14:06 01/23/18 14:06 Lab Statement: Any lab studies that have been ordered have been reviewed, and results considered in the medical decision making process. 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 NOT TREMULOUS. SUSPSECT TACHY/HYPERTENSION RELATED TO ANXIETY RATHER THAN ACUTE WITHDRAWAL. NO HX WITHDRAWAL SEIZURES Course/Dx - Course Assessment/Plan: Pt is a 57 y/o male who presents with alcohol intoxication. Per friend, somebody saw the pt had passed out on his mower and called EMS and the police. Pt does not remember any of this and only remembers mowing his lawn at his house. He denies falling from mower. After EMS and the police arrived he states he asked them if he could just go back home. He states drinking "not much " and likes to drink "anything." Pt denies diaphoresis, fever, chills, chest pain, SOB, abd pain. Per [place] police officer, a third green party called in as they saw the pt passed out with vomit on his shirt on his driveway. Test results show lactic acid of 3.7, magnesium of 1.7, AST of 59, ALT of 57, serum alcohol of 382. In the ED course the pt was given IV fluids, thiamine, folic acid. Pt will be signed out to Dr. Obrien, pending dispo, awaiting sobriety. - Diagnoses Provider Diagnoses: Alcohol intoxication, Syncope Discharge - Sign-Out/Discharge Documenting (check all that apply): Sign-Out Patient Signing out patient TO: Lorraine Obrien - pending dispo, awaiting sobriety - Discharge Plan Condition: Good Disposition: HOME Patient Education Materials: Alcohol Intoxication (ED) Referrals: Henok Carcamo MD [Primary Care Provider] - 2 Days - Billing Disposition and Condition Condition: GOOD Disposition: HOME The documentation as recorded by the Norman peace Angela accurately reflects the service I personally performed and the decisions made by me, Norman Stark MD.
[2018-01-23 19:02] VITALS: BP 155/99
--- NOTE | 2018-01-24 06:49 | ED ---
Daniel Diaz Jennifer, scribed for Lorraine Obrien MD on 01/24/18 at 0635 . Progress - Progress Note Progress Note: The patient was planned to sign out to Dr. Obrien. However, Dr. Stark discharged the patient at the end of his shift. Dr. Obrien was never involved in the care of this patient. 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 NOT TREMULOUS. SUSPSECT TACHY/HYPERTENSION RELATED TO ANXIETY RATHER THAN ACUTE WITHDRAWAL. NO HX WITHDRAWAL SEIZURES Course/Dx - Course Course Of Treatment: The patient was planned to sign out to Dr. Obrien. However, Dr. Stark discharged the patient at the end of his shift with diagnosis alcohol intoxication and syncope. Dr. Obrien was never involved in the care of this patient. - Diagnoses Provider Diagnoses: Alcohol intoxication, Syncope Discharge - Sign-Out/Discharge Documenting (check all that apply): Discharge/Admit/Transfer - Discharge Plan Condition: Good Disposition: HOME Patient Education Materials: Alcohol Intoxication (ED) Referrals: Henok Carcamo MD [Primary Care Provider] - 2 Days The documentation as recorded by the Daniel peace Jennifer accurately reflects the service I personally performed and the decisions made by , Lorraine Obrien MD.
== END 2018-01-23 19:01 | disposition home or self-care (01) ==
LOC: ED 13:16
DX: F10.129 Alcohol abuse with intoxication, unspecified (principal); R55 Syncope and collapse; Z87.891 Personal history of nicotine dependence
CPT/HCPCS: 36415; 80053; 80320; 82375; 83605; 83735; 84443; 84484; 85025; 93005; 96365; 96366; 99283; A9270-GY; G0480; J3411